=== PATIENT | male | born 1995 | race Caucasian/White ===

== ENCOUNTER 2018-03-20 19:52 | Emergency (ER) | payer OTHER ==
[2018-03-20] MEDS ORDERED: Ketorolac 60 MG/2 ML SDV IM ONE (20:24)
--- NOTE | 2018-03-20 21:04 | EDM.PDOC ---
ED HPI GENERAL MEDICAL PROBLEM - General Chief Complaint: Back Pain or Injury Stated Complaint: BACK PAIN Time Seen by Provider: 03/20/18 20:09 Source of Information: Reports: Patient History Limitations: Reports: No Limitations - History of Present Illness Location: Reports: Back Middle Back Pain Score (Numeric/FACES): 10 - Related Data Allergies Allergy/AdvReac Type Severity Reaction Status Date / Time amoxicillin Allergy Edema Verified 03/20/18 20:06 Penicillins Allergy Edema Verified 03/20/18 20:06 Home Meds: Home Meds Naproxen [Naprosyn] 500 mg PO Q12HR PRN #20 tab 03/20/18 [Rx] Orphenadrine [Norflex] 100 mg PO BID PRN #20 tab.er 03/20/18 [Rx] Sertraline [Zoloft] 100 mg PO DAILY 03/20/18 [History] Past Medical History - Past Health History Medical/Surgical History: Denies Medical/Surgical History Social & Family History - Tobacco Use Smoking Status *Q: Never Smoker - Recreational Drug Use Recreational Drug Use: No ED ROS GENERAL - Review of Systems Review Of Systems: See Below Musculoskeletal: Reports: Back Pain Neurological: Reports: Numbness (left arm ), Tingling (left arm) ED EXAM, UPPER BACK/NECK PAIN - Physical Exam Exam: See Below Exam Limited By: No Limitations General Appearance: Alert, WD/WN, No Apparent Distress Course - Vital Signs Last Recorded V/S: Last Vital Signs Temp 97.9 F 03/20/18 20:04 Pulse 59 L 03/20/18 20:04 Resp 16 03/20/18 20:04 BP 140/76 03/20/18 20:04 Pulse Ox 99 03/20/18 20:04 - Orders/Labs/Meds Orders: Active Orders 24 hr Category Date Time Status Thoracic Spine 2V [CR] Stat Exams 03/20/18 20:24 Ordered Meds: Medications Discontinued Medications Generic Name Dose Route Start Last Admin Trade Name Freq PRN Reason Stop Dose Admin Ketorolac Tromethamine 60 mg 03/20/18 20:24 03/20/18 20:29 Toradol IM 03/20/18 20:25 60 mg ONETIME ONE Administration Departure - Departure Time of Disposition: 21:20 Disposition: Home, Self-Care 01 Condition: Good Clinical Impression: Trapezius muscle strain, Muscle spasm - Discharge Information *PRESCRIPTION DRUG MONITORING PROGRAM REVIEWED*: Yes *COPY OF PRESCRIPTION DRUG MONITORING REPORT IN PATIENT EBER: No Prescriptions: Naproxen [Naprosyn] 500 mg PO Q12HR PRN #20 tab PRN Reason: Pain Orphenadrine [Norflex] 100 mg PO BID PRN #20 tab.er PRN Reason: Muscle Spasm Referrals: PCP,Not In Area [Primary Care Provider] - Brenton Henry MD [Physician] - Forms: ED Department Discharge, ED Return to Work/School Form Additional Instructions: recommend heat to the back for pain relief. May also try a topical product such as icyhot or bengay. May see a chiropractor if you so choose. norflex 1 tab PO bid prn muscle pain and spasms naproxen 1 tab PO bid prn pain pain. follow-up with occupational health in 7-10 days for a recheck of your symptoms. Here in [place] recommend Dr. Henry at the [facility]. Call [phone] to schedule with him. Please return to the ER should your symptoms change or worsen. - My Orders Last 24 Hours: My Active Orders 03/20/18 20:24 Thoracic Spine 2V [CR] Stat - Assessment/Plan Last 24 Hours: My Active Orders 03/20/18 20:24 Thoracic Spine 2V [CR] Stat
--- NOTE | 2018-03-21 06:51 | CR ---
Thoracic spine: AP, lateral and swimmer's views of the thoracic spine were obtained. Vertebral body heights and disc spaces are maintained. Minimal scoliosis is noted. Pedicles are intact. No fracture or subluxation is seen. Impression: 1. Slight scoliosis. Three-view thoracic spine study is otherwise unremarkable. Diagnostic code #2
== END 2018-03-20 21:31 | disposition home or self-care (01) ==
LOC: JD.ED 19:52
DX: S29.012A Strain of muscle and tendon of back wall of thorax, initial encounter (principal); M62.830 Muscle spasm of back; Z88.0 Allergy status to penicillin; Z88.1 Allergy status to other antibiotic agents; Z79.899 Other long term (current) drug therapy; X58.XXXA Exposure to other specified factors, initial encounter
CPT/HCPCS: 72070; 96372; 99283; J1885